=== PATIENT | female | born 1975 | race African-American/Black ===

== ENCOUNTER 2016-06-07 13:51 | Observation (INO) | payer OTHER ==
[~2016-06-07] VITALS: Ht 167.6 cm; Wt 89.0 kg
[2016-06-07 14:52] LABS: HEMOGLOBIN 15.4 g/dL (11.7-16.4)
[2016-06-07 15:05] LABS: BLOOD UREA NITROGEN 16 mg/dL (7-18)
[2016-06-07 15:07] LABS: ASPARTATE AMINO TRANSFERASE 368 U/L (15-37)
[2016-06-07 15:08] LABS: ACETAMINOPHEN < 2 mcg/mL (10-30)
[2016-06-07 16:44] LABS: DAU SCREEN DISCLAIMER
[2016-06-07 19:06] LABS: ACETAMINOPHEN < 2 mcg/mL (10-30)
[2016-06-08] MEDS ORDERED: ONDANSETRON ODT 4 MG PO PRN (00:30)
[2016-06-08] MEDS ORDERED: DOCUSATE 100 MG CAPSULE PO PRN (00:30)
[2016-06-08] MEDS ORDERED: POTASSIUM CHLORIDE 20 MEQ TAB.ER.PRT PO ONE (00:30)
[2016-06-08] MEDS ORDERED: POTASSIUM CHLORIDE 20 MEQ TAB.ER.PRT ONE (01:02)
[2016-06-08 01:26] LABS: HEP B SURF. AB < 3.1 mIU/mL (0.0-10.0)
[2016-06-08 02:04] LABS: HEPATITIS C VIRUS ANTIBODY Nonreactive (Nonreactive)
[2016-06-08 02:30] VITALS: BP 155/80
[2016-06-08] MEDS ORDERED: TEMAZEPAM 15 MG CAPSULE PO PRN (03:00)
[2016-06-08 08:37] VITALS: BP 125/81
[2016-06-08] MEDS ORDERED: PANTOPRAZOLE 40 MG IV IVPush SCH (09:00)
[2016-06-08] MEDS ORDERED: ESCI20TA10 PO (10:33)
[2016-06-08] MEDS ORDERED: HYDR25TA6 PO (10:33)
[2016-06-08] MEDS ORDERED: BUPR300T4 PO (10:33)
[2016-06-08] MEDS ORDERED: ETOD400T2 PO (10:33)
[2016-06-08] MEDS ORDERED: AMLO5TAB2 PO (10:33)
[2016-06-08] MEDS ORDERED: LAMO200T3 PO (10:39)
[2016-06-08] MEDS ORDERED: TRAZ50TA18 PO (10:46)
[2016-06-08 11:12] LABS: ICTOTEST POSITIVE
[2016-06-08] MEDS: AMLODIPINE 5 MG TABLET PO SCH (11:38)
[2016-06-08] MEDS: BUPROPION XL 300 MG HOMEMEDPO SCH (11:39)
[2016-06-08] MEDS: HYDROCHLOROTHIAZIDE 25 MG TABLET PO SCH (11:39)
[2016-06-08] MEDS: PANTOPROZOLE 40MG TABLET PO SCH (11:39)
[2016-06-08 16:11] VITALS: BP 135/94
[2016-06-08 19:11] VITALS: BP 144/86
[2016-06-08] MEDS ORDERED: BUPROPION SR 150 MG TABLET PO SCH (21:00)
[2016-06-08] MEDS ORDERED: TRAZODONE 100MG TABLET PO SCH (21:00)
[2016-06-08] MEDS ORDERED: LAMOTRIGINE 200 MG TABLET PO SCH (21:00)
[2016-06-08] MEDS ORDERED: LEXAPRO 30 MG HOMEMEDPO SCH (21:00)
[2016-06-08] MEDS ORDERED: BUPROPION XL 300 MG HOMEMEDPO SCH (21:00)
[2016-06-09 02:09] VITALS: BP 113/75
[2016-06-09 05:41] LABS: HEMOGLOBIN 13.9 g/dL (11.7-16.4)
[2016-06-09 05:57] LABS: BLOOD UREA NITROGEN 9 mg/dL (7-18)
[2016-06-09 06:02] LABS: ASPARTATE AMINO TRANSFERASE 32 U/L (15-37)
[2016-06-09] MEDS: PANTOPROZOLE 40MG TABLET PO SCH (07:30)
[2016-06-09] MEDS: HYDROCHLOROTHIAZIDE 25 MG TABLET PO SCH (07:40)
[2016-06-09] MEDS: BUPROPION XL 300 MG HOMEMEDPO SCH (07:44)
[2016-06-09 07:50] VITALS: BP 116/60
[2016-06-09] MEDS ORDERED: POTASSIUM CHLORIDE 20 MEQ TAB.ER.PRT PO ONE ×3 (08:00→11:30)
[2016-06-09] MEDS: AMLODIPINE 5 MG TABLET PO SCH (08:52)
[2016-06-09] MEDS ORDERED: ETODOLAC 200 MG CAPSULE PO SCH (11:30)
[2016-06-09] MEDS ORDERED: MULTIVITAMIN 1 TABLET PO SCH (11:30)
[2016-06-09] MEDS ORDERED: ESCITALOPRAM OXALATE 30 MG PO SCH (11:30)
[2016-06-09] MEDS ORDERED: TEMPLATE NON-FORMULARY MED. (Bupropion Hcl** (Bupropion Xl**) 300 MG) PO SCH (11:30)
[2016-06-09] MEDS ORDERED: HYDROCHLOROTHIAZIDE 25 MG TABLET PO SCH (11:30)
[2016-06-09 12:47] VITALS: BP 123/83
[2016-06-09 12:56] LABS: BLOOD UREA NITROGEN 10 mg/dL (7-18)
[2016-06-09 16:44] LABS: HCG UR OBC PASS
[2016-06-09] MEDS ORDERED: POTASSIUM CHLORIDE 20 MEQ TAB.ER.PRT PO SCH (17:00)
[2016-06-09 19:23] VITALS: BP 129/91
[2016-06-09] MEDS ORDERED: TRAZODONE 100MG TABLET PO SCH (21:00)
[2016-06-09] MEDS ORDERED: LAMOTRIGINE 200 MG TABLET PO SCH (21:00)
== END 2016-06-09 20:30 ==
LOC: ED 22:01 → INTOOBSV 06-08 00:09 → EDIP 06-08 00:09 → 3NE 06-08 02:02 → 3E 06-09 17:43
PROVIDERS: ADMIT Internal Medicine; ATTEND Internal Medicine
DX: T39.392A Poisoning by other nonsteroidal anti-inflammatory drugs [NSAID], intentional self-harm, initial encounter (principal); F10.229 Alcohol dependence with intoxication, unspecified; E87.6 Hypokalemia; N17.9 Acute kidney failure, unspecified; R74.8 Abnormal levels of other serum enzymes; F31.9 Bipolar disorder, unspecified; I10 Essential (primary) hypertension; F41.9 Anxiety disorder, unspecified; Z98.84 Bariatric surgery status; Z83.3 Family history of diabetes mellitus; E66.9 Obesity, unspecified; Y92.89 Other specified places as the place of occurrence of the external cause
CPT/HCPCS: 36415; 76700; 80048; 80053; 80307; 80329; 81001; 81025; 84439; 84443; 85025; 86706; 87086; 87324; 99285; G0378; 86705; 86709; 86803; 87340; 96372; G0480

== ENCOUNTER 2017-06-18 00:28 | Inpatient (IN) | payer MEDICAID, OTHER ==
[~2017-06-18] VITALS: Ht 162.6 cm; Wt 97.0 kg
[~2017-06-18 00:28] MED LIST: AMLO5TAB2 PO; BUPR300T4 PO; ESCI20TA10 PO; ETOD400T2 PO; HYDR25TA6 PO; LAMO200T3 PO; TRAZ50TA18 PO
[2017-06-18] MEDS ORDERED: ONDANSETRON 2MG/ML, 2ML ONE (00:59)
[2017-06-18] MEDS ORDERED: PROMETHAZINE 25 MG/ML, 1ML ONE (00:59)
[2017-06-18] MEDS ORDERED: MORPHINE SULFATE 4 MG/ML, 1ML ONE (00:59)
[2017-06-18] MEDS ORDERED: SODIUM CHLORIDE FLUSH 10ML SYR IVF ONE (01:00)
[2017-06-18] MEDS ORDERED: SODIUM CHLORIDE 0.9% 1,000ML IVBOLUS ONE (01:00)
[2017-06-18] MEDS ORDERED: ONDANSETRON 2MG/ML, 2ML IVPush ONE (01:00)
[2017-06-18] MEDS ORDERED: PROMETHAZINE 25 MG/ML, 1ML IM ONE (01:00)
[2017-06-18] MEDS ORDERED: MORPHINE SULFATE 4 MG/ML, 1ML IVPush PRN (01:00)
[2017-06-18 01:02] LABS: BASOPHILS # (AUTO) 0.02 x10^3/uL (0-0.1); BASOPHILS % (AUTO) 0 % (0-1); EOSINOPHILS # (AUTO) 0.04 x10^3/uL (0-0.4); EOSINOPHILS % (AUTO) 0 % (1-7); LYMPHOCYTES # (AUTO) 2.37 x10^3/uL (1-3.4); LYMPHOCYTES % (AUTO) 16 % (22-44); MD NO; MEAN CORPUSCULAR HGB CONC 33.5 g/dL (32.4-35.8); MEAN CORPUSCULAR VOLUME 89.3 fL (80-100); MEAN PLATELET VOLUME 8.4 fL (7.4-10.4); MONOCYTES # (AUTO) 0.53 x10^3/uL (0.2-0.8); MONOCYTES % (AUTO) 4 % (2-9); NEUTROPHILS # (AUTO) 11.83 x10^3/uL (1.8-6.8); NEUTROPHILS % (AUTO) 80 % (42-75); PLATELET COUNT 249 x10^3/uL (130-400); RED BLOOD COUNT 5.38 x10^6/uL (3.82-5.3); RED CELL DISTRIBUTION WIDTH 15.8 % (9.6-15.2)
[2017-06-18 01:14] LABS: ALANINE AMINOTRANSFERASE 35 U/L (12-78); ALBUMIN 4.7 g/dL (3.4-5.0); ANION GAP 10 mmol/L (5-15); CALCIUM 10.7 mg/dL (8.5-10.1); CHLORIDE 102 mmol/L (98-107); CREATININE 0.97 mg/dL (0.55-1.02)
[2017-06-18 01:19] LABS: ALKALINE PHOSPHATASE 69 U/L (45-117); BILIRUBIN,TOTAL 0.3 mg/dL (0.2-1.0); TOTAL PROTEIN 9.3 g/dL (6.4-8.2); TROPONIN I < 0.015 ng/mL (0.000-0.045)
[2017-06-18] MEDS ORDERED: OMNIPAQUE 350 MG/ML, 100ML BOTTLE ONE (01:52)
[2017-06-18 03:03] LABS: MICROSCOPIC NOT IND
[2017-06-18 03:12] LABS: CULTURE INDICATED? NO
[2017-06-18] MEDS: D5%-0.45% NACL 1,000 ML IV SCH ×2 (04:12→14:12)
[2017-06-18] MEDS ORDERED: ONDANSETRON ODT 4 MG PO PRN (04:30)
[2017-06-18] MEDS ORDERED: ONDANSETRON 2MG/ML, 2ML IVPush PRN (04:30)
[2017-06-18] MEDS ORDERED: LABETALOL 5MG/ML, 20ML IVPush PRN (04:30)
[2017-06-18] MEDS ORDERED: ACETAMINOPHEN 325 MG TABLET PO PRN (04:30)
[2017-06-18 04:33] VITALS: BP 110/71
[2017-06-18 07:06] VITALS: BP 107/70
[2017-06-18] MEDS ORDERED: FAMOTIDINE 20 MG/2 ML IVPush SCH (09:00)
[2017-06-18 09:12] LABS: MICROSCOPIC NOT IND
[2017-06-18 09:14] LABS: CULTURE INDICATED? NO
[2017-06-18] MEDS: AMLODIPINE 5 MG TABLET PO SCH (11:29)
[2017-06-18] MEDS: ESCITALOPRAM OXALATE 30 MG HOMEMEDPO SCH (11:29)
[2017-06-18] MEDS: BUPROPION SR 150 MG TABLET PO SCH ×2 (11:29→22:22)
[2017-06-18 13:23] VITALS: BP 113/76
[2017-06-18 19:12] VITALS: BP 109/70
[2017-06-18] MEDS ORDERED: TRAZODONE 100MG TABLET PO SCH (21:00)
[2017-06-18] MEDS ORDERED: LAMOTRIGINE 200 MG TABLET PO SCH (21:00)
[2017-06-18] MEDS: FAMOTIDINE 20 MG TABLET PO SCH (23:05)
[2017-06-19 01:38] VITALS: BP 110/72
[2017-06-19 05:06] LABS: ALBUMIN 3.6 g/dL (3.4-5.0); ANION GAP 8 mmol/L (5-15); BASOPHILS # (AUTO) 0.03 x10^3/uL (0-0.1); BASOPHILS % (AUTO) 1 % (0-1); CALCIUM 8.8 mg/dL (8.5-10.1); CHLORIDE 108 mmol/L (98-107); EOSINOPHILS # (AUTO) 0.06 x10^3/uL (0-0.4); EOSINOPHILS % (AUTO) 1 % (1-7); LYMPHOCYTES # (AUTO) 1.49 x10^3/uL (1-3.4); LYMPHOCYTES % (AUTO) 37 % (22-44); MD NO; MEAN CORPUSCULAR HEMOGLOBIN 30.4 pg (27.0-34.8); MEAN CORPUSCULAR HGB CONC 33.6 g/dL (32.4-35.8); MEAN CORPUSCULAR VOLUME 90.5 fL (80-100); MEAN PLATELET VOLUME 8.6 fL (7.4-10.4); MONOCYTES # (AUTO) 0.37 x10^3/uL (0.2-0.8); MONOCYTES % (AUTO) 9 % (2-9); NEUTROPHILS # (AUTO) 2.13 x10^3/uL (1.8-6.8); NEUTROPHILS % (AUTO) 52 % (42-75); PLATELET COUNT 181 x10^3/uL (130-400); RED BLOOD COUNT 4.32 x10^6/uL (3.82-5.3); RED CELL DISTRIBUTION WIDTH 15.5 % (9.6-15.2)
[2017-06-19 05:10] LABS: ALANINE AMINOTRANSFERASE 31 U/L (12-78); ALKALINE PHOSPHATASE 51 U/L (45-117); BILIRUBIN,TOTAL 0.4 mg/dL (0.2-1.0); CREATININE 0.83 mg/dL (0.55-1.02)
[2017-06-19 07:43] VITALS: BP 113/75
[2017-06-19] MEDS: ESCITALOPRAM OXALATE 30 MG HOMEMEDPO SCH (09:00)
[2017-06-19] MEDS: FAMOTIDINE 20 MG TABLET PO SCH (09:46)
[2017-06-19] MEDS: BUPROPION SR 150 MG TABLET PO SCH (09:46)
[2017-06-19] MEDS: AMLODIPINE 5 MG TABLET PO SCH (09:46)
[2017-06-19] MEDS ORDERED: POLYETHYLENE GLYCOL 17 GM PACKET PO SCH (11:30)
[2017-06-19 13:10] VITALS: BP 109/72
[2017-06-19] MEDS ORDERED: PNEUMOCOCCAL 23 VACCINE IM-VACC ONE (13:30)
== END 2017-06-19 14:58 | disposition home or self-care (01) | DRG 390 ==
LOC: ED 03:46 → EDIP 04:03 → 4NOR 04:19 → DCLOUNGE 06-19 14:46
PROVIDERS: ADMIT Internal Medicine; ATTEND Family Medicine
DX: K56.51 Intestinal adhesions [bands], with partial obstruction (principal); E83.52 Hypercalcemia; F31.9 Bipolar disorder, unspecified; I10 Essential (primary) hypertension; D72.829 Elevated white blood cell count, unspecified; E66.9 Obesity, unspecified; K83.8 Other specified diseases of biliary tract; Z79.899 Other long term (current) drug therapy; Z90.49 Acquired absence of other specified parts of digestive tract; Z98.84 Bariatric surgery status; Z68.36 Body mass index [BMI] 36.0-36.9, adult
CPT/HCPCS: 36415; 74177; 74250; 80053; 81003; 83690; 83735; 84100; 84484; 84703; 85025; 90732; 93005; 96361; 96372; 96374; 96375; J2405; J2550; Q9967; J7030; S0028

== ENCOUNTER 2018-10-26 15:36 | Emergency (ER) | payer MEDICAID, OTHER ==
[~2018-10-26] VITALS: Ht 162.6 cm; Wt 96.4 kg
[~2018-10-26 15:36] MED LIST changes: +AMLO-150 PO; -AMLO5TAB2 PO; -TRAZ50TA18 PO; +TRAZ50TA66 PO
[2018-10-26 15:43] VITALS: BP 118/80
--- NOTE | 2018-10-26 18:05 | NUR ---
Patient/Caregiver given discharge instructions and they have confirmed that they understand the instructions. Patient ambulatory with steady gait.
== END 2018-10-26 18:06 | disposition home or self-care (01) ==
LOC: ED 18:00
DX: G89.11 Acute pain due to trauma (principal); M79.672 Pain in left foot; W22.03XA Walked into furniture, initial encounter; Y93.89 Activity, other specified; Y92.89 Other specified places as the place of occurrence of the external cause; Y99.8 Other external cause status
CPT/HCPCS: 99283